=== PATIENT | female | born 1970 | race Caucasian/White ===

== ENCOUNTER 2023-05-26 12:02 | Outpatient (OUT) | payer OTHER, SELFPAY ==
--- NOTE | 2023-05-26 12:12 | XR_ITS ---
[place] [address] Patient Name: DAVID BARNARD MRN: [id number] date: 1970 Sex: F Assigned Patient Location: [facility] Current Patient Location: [facility] Accession/Order Number: [id number] Exam Date: 05/26/2023 12:35 Report Date: 05/26/2023 15:39 At the request of: BRIE KENNEDY Procedure: XR knee CAMILO 4V EXAMINATION: XR knee CAMILO 4V HISTORY: Chronic knee pain, Osteoarthritis of both knees M17.0 COMPARISON: No relevant comparison available. FINDINGS: RIGHT FINDINGS: BONES: Marked narrowing of medial joint space; mild-moderate narrowing of the lateral and anterior joint spaces. Large degenerative osteophytes along margins of all 3 compartments. No fracture or dislocation. SOFT TISSUES: No visible soft tissue swelling. OTHER: Negative. LEFT FINDINGS: BONES: Marked narrowing of the medial joint space; mild-moderate narrowing of the lateral anterior joint spaces. Large degenerative osteophytes along the margins of all 3 compartment. No fracture or dislocation. SOFT TISSUES: No visible soft tissue swelling. OTHER: Negative. XR/XR knee CAMILO 4V IMPRESSION: RIGHT CONCLUSION: Marked degenerative joint disease. LEFT CONCLUSION: Marked degenerative joint disease. Electronically authenticated by: VALENTIN SAUCEDO Date: 05/26/2023 15:39
== END 2023-05-26 12:03 | disposition home or self-care (01) ==
LOC: RAD 12:06
PROVIDERS: PCP Nurse Practitioner Family; Visit Provider Nurse Practitioner Family
DX: M17.0 Bilateral primary osteoarthritis of knee (principal)
CPT/HCPCS: 73564

== ENCOUNTER 2024-03-26 13:21 | Outpatient (OUT) | payer OTHER, SELFPAY ==
--- NOTE | 2024-03-26 13:32 | XR_ITS ---
The [place] [address] Patient Name: DAVID BARNARD MRN: [id number] date: 1970 Sex: F Assigned Patient Location: [facility] Current Patient Location: Accession/Order Number: [id number] Exam Date: 03/26/2024 13:50 Report Date: 03/27/2024 06:58 At the request of: BRIE KENNEDY Procedure: XR lumbar spine 2-3V EXAMINATION: XR lumbar spine 2-3V HISTORY: Chronic Low Back Pain COMPARISON: No relevant comparison available. FINDINGS: BONES: Normal alignment with no acute fracture or spondylolisthesis. Moderate diffuse degenerative spondylosis and facet osteoarthropathy DISC SPACES: Mild multilevel disc space narrowing PARASPINOUS: Negative. No paraspinous abnormality is seen. OTHER: Limited exam due to patient body habitus and underpenetration XR/XR lumbar spine 2-3V IMPRESSION: Degenerative changes Electronically authenticated by: NAIDA HENRIQUEZ Date: 03/27/2024 06:58
--- NOTE | 2024-03-26 13:32 | XR_ITS ---
The [address] [address] Patient Name: DAVID BARNARD MRN: [id number] date: 1970 Sex: F Assigned Patient Location: [facility] Current Patient Location: [facility] Accession/Order Number: [id number] Exam Date: 03/26/2024 13:50 Report Date: 03/26/2024 15:17 At the request of: BRIE KENNEDY Procedure: XR hip BI w PEL 1V EXAMINATION: XR hip BI w PEL 1V HISTORY: Bilateral Hip Pain COMPARISON: No relevant comparison available. FINDINGS: RIGHT FINDINGS: BONES: No acute fracture or dislocation. Mild osteoarthropathy with marginal osteophyte formation SOFT TISSUES: Negative. No visible soft tissue swelling. OTHER: Negative. LEFT FINDINGS: BONES: No acute fracture or dislocation. Mild osteoarthropathy with marginal osteophyte formation SOFT TISSUES: Negative. No visible soft tissue swelling. OTHER: Negative. XR/XR hip BI w PEL 1V IMPRESSION: RIGHT CONCLUSION: Mild osteoarthritis LEFT CONCLUSION: Mild osteoarthritis Electronically authenticated by: NAIDA HENRIQUEZ Date: 03/26/2024 15:17
== END 2024-03-26 13:22 | disposition home or self-care (01) ==
LOC: RAD 13:24
PROVIDERS: PCP Nurse Practitioner Family; Visit Provider Nurse Practitioner Family
DX: M54.50 Low back pain, unspecified (principal); G89.29 Other chronic pain; M25.551 Pain in right hip; M25.552 Pain in left hip; M51.36 Other intervertebral disc degeneration, lumbar region; M16.0 Bilateral primary osteoarthritis of hip
CPT/HCPCS: 72100; 73523